=== PATIENT | female | born 2000 | race African-American/Black ===

== ENCOUNTER 2023-03-03 23:41 | Emergency (ER) | payer SELFPAY ==
[~2023-03-03] VITALS: Ht 167.6 cm; Wt 87.0 kg
[2023-03-03 23:54] VITALS: O2SAT 100
[2023-03-04 01:08] LABS: CLARITY URINE CLOUDY (CLEAR); COLOR URINE YELLOW (YELLOW); GLUCOSE URINE NEGATIVE (NEGATIVE); KETONES URINE TRACE (NEGATIVE); LEUKOCYTE ESTERASE URINE TRACE (NEGATIVE); NITRITE URINE NEGATIVE (NEGATIVE); OCCULT BLOOD URINE NEGATIVE (NEGATIVE); PH URINE 5.5 (4.5-8.0); PROTEIN URINE NEGATIVE (NEGATIVE); SPECIFIC GRAVITY URINE 1.022 (1.005-1.030); UROBILINOGEN URINE 0.2 E.U./dL (0.2-1.0)
[2023-03-04 01:10] LABS: RBC URINE 0-2 /hpf (0-2); YEAST URINE NONE SEEN
[2023-03-04 01:18] LABS: *AMPHETAMINES SCREEN URINE NEGATIVE (NEGATIVE); *BARBITURATES SCREEN URINE NEGATIVE (NEGATIVE); *BENZODIAZEPINES SCREEN URINE NEGATIVE (NEGATIVE); *COCAINE SCREEN URINE NEGATIVE (NEGATIVE); CANNABINOID URINE SCREEN NEGATIVE (NEGATIVE); ECSTASY MDMA SCREEN URINE NEGATIVE (NEGATIVE); OPIATES URINE SCREEN NEGATIVE (NEGATIVE); PHENCYCLIDINE URINE SCREEN NEGATIVE (NEGATIVE)
[2023-03-04 03:43] LABS: BASOPHILS % 0.2 % (0.0-2.0); EOSINOPHILS % 1.6 % (0.0-5.0); HEMATOCRIT. 32.6 % (36.0-48.0); HEMOGLOBIN. 10.7 g/dL (12.0-16.0); LYMPHOCYTES % 29.3 % (20.0-50.0); MEAN CORPUSCULAR HEMOGLOBIN 29.4 pg (28.0-32.0); MEAN CORPUSCULAR VOLUME 89.1 fL (81.0-99.0); MEAN PLATELET VOLUME 8.1 fl (7.4-10.4); MONOCYTES % 8.6 % (2.0-8.0); NEUTROPHILS % 60.3 % (40.0-76.0); PLATELET 242 x1000/uL (130-400); RED BLOOD CELL COUNT 3.66 mill/uL (4.2-5.4); RED CELL DISTRIBUTION WIDTH 13.7 % (11.6-14.6); WHITE BLOOD COUNT 11.7 x1000/uL (4.5-11.0)
[2023-03-04 03:54] LABS: CHLORIDE 112 mEq/L (98-107); INDEX HEMOLYSI 1 (1-3); INDEX ICTERIC 1 (1-4); INDEX LIPEMIC 1 (1-3); POTASSIUM 3.6 mEq/L (3.5-5.1); SODIUM 142 mEq/L (136-145)
[2023-03-04 04:09] LABS: ACETAMINOPHEN < 2 ug/mL (10-30); BILIRUBIN TOTAL 0.2 mg/dL (0.1-1.0); ETHANOL BLOOD < 10 mg/dL (<10); PROTEIN TOTAL 6.9 g/dL (6.0-8.3)
[2023-03-04 04:13] LABS: ALANINE AMINOTRANSFERASE 18 IU/L (13-61); ALBUMIN 3.2 g/dL (3.4-5.0); ASPARTATE AMINOTRANSFERASE 12 IU/L (15-37); CALCIUM 8.1 mg/dL (8.5-10.1); CARBON DIOXIDE 26 mEq/L (21-32); CREATININE 0.7 mg/dL (0.6-1.3); GLUCOSE 96 mg/dL (70-105); UREA NITROGEN BLOOD 11 mg/dL (7-21)
[2023-03-04 05:01] LABS: HCG SCREEN NEGATIVE
[2023-03-04 05:44] LABS: SQUAMOUS EPITHELIAL CELL URINE 1+ /lpf (RARE/1+)
[2023-03-04 05:46] LABS: BACTERIA URINE 1+
[2023-03-04] MEDS ORDERED: LORAZEPAM 2MG/ML CPJ IM ONE (08:15)
[2023-03-04] MEDS ORDERED: HALOPERIDOL LACTATE 5MG/ML VIAL IM ONE (08:15)
[2023-03-04 14:19] VITALS: BP 106/62; PULSE 64; RESP 18; TEMP 98.5
== END 2023-03-04 14:21 | disposition home or self-care (01) ==
LOC: ER 23:41
DX: F32.9 Major depressive disorder, single episode, unspecified (principal)
CPT/HCPCS: 36415; 71045; 80053; 80305; 80307; 80320; 80329; 81003; 84703; 85025; 99284; G0480

== ENCOUNTER 2023-06-15 16:46 | Emergency (ER) | payer MEDICAID ==
[~2023-06-15] VITALS: Ht 168.9 cm; Wt 84.0 kg
[2023-06-15 16:59] VITALS: O2SAT 100
[2023-06-15 18:05] LABS: BASOPHILS % 0.4 % (0.0-2.0); EOSINOPHILS % 1.1 % (0.0-5.0); HEMATOCRIT. 33.5 % (36.0-48.0); HEMOGLOBIN. 11.1 g/dL (12.0-16.0); LYMPHOCYTES % 25.2 % (20.0-50.0); MEAN CORPUSCULAR HEMOGLOBIN 29.2 pg (28.0-32.0); MEAN CORPUSCULAR VOLUME 88.4 fL (81.0-99.0); MEAN PLATELET VOLUME 8.7 fl (7.4-10.4); MONOCYTES % 10.5 % (2.0-8.0); NEUTROPHILS % 62.8 % (40.0-76.0); PLATELET 232 x1000/uL (130-400); RED BLOOD CELL COUNT 3.79 mill/uL (4.2-5.4); RED CELL DISTRIBUTION WIDTH 14.2 % (11.6-14.6); WHITE BLOOD COUNT 7.2 x1000/uL (4.5-11.0)
[2023-06-15] MEDS ORDERED: GUAI-741 MT (19:01)
[2023-06-15] MEDS ORDERED: FERR325T6 MT (19:02)
[2023-06-15 19:26] VITALS: BP 125/75; PULSE 85; RESP 18; TEMP 98.8
== END 2023-06-15 19:27 | disposition home or self-care (01) ==
LOC: ER 16:58
DX: B34.9 Viral infection, unspecified (principal); N93.9 Abnormal uterine and vaginal bleeding, unspecified
CPT/HCPCS: 36415; 71045; 81025; 85025; 99284

== ENCOUNTER 2025-01-16 16:21 | Emergency (ER) | payer MEDICAID ==
[~2025-01-16] VITALS: Ht 165.1 cm; Wt 81.0 kg
[~2025-01-16 16:21] MED LIST: FERR325T6 MT; GUAI-741 MT
[2025-01-16 16:27] VITALS: O2SAT 99
[2025-01-16] MEDS: ACETAMINOPHEN 325MG TABLET PO ONE (17:40)
[2025-01-16 18:42] VITALS: BP 116/58; PULSE 79; RESP 18; TEMP 36.9; O2SAT 99
== END 2025-01-16 18:43 | disposition home or self-care (01) ==
LOC: ER 16:21
DX: S50.02XA Contusion of left elbow, initial encounter (principal); S09.90XA Unspecified injury of head, initial encounter; W19.XXXA Unspecified fall, initial encounter; Y93.89 Activity, other specified; Y92.009 Unspecified place in unspecified non-institutional (private) residence as the place of occurrence of the external cause; Y99.8 Other external cause status
CPT/HCPCS: 73080; 99283